=== PATIENT | male | born 1960 | race African-American/Black ===

== ENCOUNTER 2016-12-06 21:48 | Inpatient (IN) | payer MEDICAID ==
[2016-12-06] MEDS ORDERED: Sodium Chloride 0.9% 1,000 ML IV ONE (22:31)
[2016-12-06] MEDS ORDERED: Albuterol/Ipratropium Neb 3 ML AERS HHN ONE ×2 (22:31→22:35)
--- NOTE | 2016-12-06 22:38 | ED Physician Chart ---
Chief Complaint/HPI - Patient Information Date Seen:: 12/06/16 Time Seen:: 22:32 Chief Complaint:: cough History of Present Illness:: 1 wk hx of severe cough. pt recently dxd w copd. hx of smoking 1ppd...quit x 2 weeks. sent in from [facility] by Dr Bonilla. no cardiac hx. no hx of dvt. no leg edema or pain. pt was just released from [facility] on sunday for similar sx(copd exac ). he has not been on any abx. there has been no fever. pt says cough is prod of some yellow sputum although we have seen none expressed here in ed. call placed to in for additional info yields conflicting info that pt is on levaquin since yesterday...pt had denied being on any abx. Allergies:: Allergies Allergy/AdvReac Type Severity Reaction Status Date / Time No Known Allergies Allergy Verified 12/06/16 22:11 Vitals:: Vital Signs - 8 hr 12/06/16 22:00 Temp 98.1 F HR 86 RR 22 BP 134/94 O2 Sat % 95 Historian:: Patient Review of Systems - Review of Systems General/Constitutional: No fever, No chills, No weight loss, No weakness, No diaphoresis, No edema, No loss of appetite Skin: No skin lesions, No rash, No bruising Head: No headache, No light-headedness Eyes: No loss of vision, No pain, No diplopia ENT: No earache, No nasal drainage, No sore throat, No tinnitus Neck: No neck pain, No swelling, No thyromegaly, No stiffness, No mass noted Cardio Vascular: No chest pain, No palpitations, No PND, No orthopnea, No edema Pulmonary: No SOB, Cough, Sputum, No wheezing GI: No nausea, No vomiting, No diarrhea, No pain, No melena, No hematochezia, No constipation, No hematemesis G/U: No dysuria, No frequency, No hematuria Musculoskeletal: No bone or joint pain, No back pain, No muscle pain Endocrine: No polyuria, No polydipsia Psychiatric: No prior psych history, No depression, No anxiety, No suicidal ideation Hematopoietic: No bruising, No lymphadenopathy Allergic/Immuno: No urticaria, No angioedema Neurological: No syncope, No focal symptoms, No weakness, No paresthesia, No headache, No seizure, No dizziness, No confusion, No vertigo Past Medical History - Past Medical History Past Medical History: Asthma/COPD, Other (back pain, spinal disc dz) Social History: Non Smoker (prior 1ppd smoker till 2 wks ago) Psychiatricy History: Bipolar Medication: Reviewed Family Medical History - Family Member Mother History Unknown: Yes Physical Exam - Physical Examination General/Constitutional: Awake, Well-developed, well-nourished, Alert, No distress, GCS 15, Non-toxic appearing, Ambulatory Head: Atraumatic Eyes: Lids, conjuctiva normal, PERRL, EOMI Skin: Nl inspection, No rash, No skin lesions, No ecchymosis, Well hydrated, No lymphadenopathy ENMT: External ears, nose nl, Nasal exam nl, Lips, teeth, gums nl Neck: Nontender, Full ROM w/o pain, No JVD, No nuchal rigidity, No bruit, No mass, No stridor Respiratory: Nl effort/Exclusion, Clear to Auscultation Other Respiratory comments:: pt has mild dry cough. lungs clear. nonpressured speech. nontoxic/alert. Cardio Vascular: RRR, No murmur, gallop, rubs, NL S1 S2 GI: No tenderness/rebounding/guarding, No organomegaly, No hernia, Normal BS's, Nondistended, No mass/bruits, No McBurney tenderness : No CVA tenderness Extremities: No tenderness or effusion, Full ROM, normal strength in all extremities, No edema, Normal digits & nails Neuro/Psych: Alert/oriented, DTR's symmetric, Normal sensory exam, Normal motor strength, Judgement/insight normal, Mood normal, Normal gait, No focal deficits Misc: normal gait, Normal back, No paraspinal tenderness Labs/Radiology/EKG Results - Lab Results Results: Laboratory Tests 12/06/16 12/06/16 12/06/16 22:53 23:23 23:23 WBC 8.4 RBC 4.94 Hgb 13.9 Hct 41.5 MCV 83.9 MCH 28.2 MCHC Differential 33.6 RDW 13.5 Plt Count 210 MPV 8.7 Neutrophils % 77.3 Lymphocytes % 16.5 L Monocytes % 1.9 L Eosinophils % 0.9 Basophils % 3.4 H Sodium 134 L Potassium 4.7 Chloride 103 Carbon Dioxide 29.2 Anion Gap 6.5 L BUN 18 Creatinine 1.0 Est GFR ( Amer) > 60.0 Est GFR (Non-Af Amer) > 60.0 BUN/Creatinine Ratio 18.0 Glucose 110 H Whole Bld Lactic Acid 1.31 Calcium 8.9 Total Bilirubin 0.4 AST 19 ALT 47 Alkaline Phosphatase 58 Total Protein 7.0 Albumin 4.0 L Globulin 3.0 Albumin/Globulin Ratio 1.3 Valproic Acid 12/06/16 23:23 WBC RBC Hgb Hct MCV MCH MCHC Differential RDW Plt Count MPV Neutrophils % Lymphocytes % Monocytes % Eosinophils % Basophils % Sodium Potassium Chloride Carbon Dioxide Anion Gap BUN Creatinine Est GFR ( Amer) Est GFR (Non-Af Amer) BUN/Creatinine Ratio Glucose Whole Bld Lactic Acid Calcium Total Bilirubin AST ALT Alkaline Phosphatase Total Protein Albumin Globulin Albumin/Globulin Ratio Valproic Acid 31.2 L - Radiology Results Results: cxr nad - EKG Interpretations EKG Time:: 10:45 Rhythm: nsr [place]: 45 Rate: 73 Comments:: wnl ED Septic Shock - . Is Septic Shock (SBP<90, OR Lactate>4 mmol\L) present?: No - <6hrs of presentation: Vital Signs: Vital Signs - 8 hr 12/06/16 22:00 Temp 98.1 F HR 86 RR 22 BP 134/94 O2 Sat % 95 Reassessment (Disposition) - Reassessment Reassessment:: case dw Dr Bonilla who has decided to admit pt for observation. he will give rn a abx order. ...etc.. Reassessment Condition:: Improved - Diagnosis Diagnosis:: 1 copd exacerbation 2 bronchitis - Patient Disposition Admitted to:: Med/Surg Condition at Disposition:: Improved
[2016-12-06 23:09] LABS: % BASOPHILS 3.4 % (0.0-2.0); % EOSINOPHILS 0.9 % (0.0-5.0); % LYMPHOCYTES 16.5 % (20.0-50.0); % MONOCYTES 1.9 % (2.0-10.0); % NEUTROPHILS 77.3 % (40.0-80.0); HEMATOCRIT 41.5 % (39.0-49.0); HEMOGLOBIN 13.9 gm/dL (13.2-17.3); MEAN CELL VOLUME 83.9 fl (80-99); MEAN CORPUSCULAR HEMOGLOBIN 28.2 pg (26.0-30.0); MEAN CORPUSCULAR HGB CONC 33.6 pg (28.0-36.0); MEAN PLATELET VOLUME 8.7 fl; NEUTROPHILE ABSOLUTE 6.4 Th/cmm (1.8-8.0); PLATELET COUNT 210 Th/cmm (150-400); RED BLOOD COUNT 4.94 Mil/cmm (4.30-5.70); RED CELL DISTRIBUTION WIDTH 13.5 % (11.5-20.0); WHITE BLOOD COUNT 8.4 Th/cmm (4.8-10.8)
[2016-12-06 23:49] LABS: ALB/GLOB RATIO 1.3 (1.0-1.8); ALKALINE PHOSPHATASE 58 U/L (34-104); ANION GAP 6.5 (7.0-16.0); BILIRUBIN,TOTAL 0.4 mg/dL (0.3-1.0); BUN - UREA NITROGEN 18 mg/dL (7-25); CALCIUM SERUM 8.9 mg/dL (8.6-10.3); CARBON DIOXIDE 29.2 mEq/L (21.0-31.0); CHLORIDE 103 mEq/L (98-107); GLUCOSE 110 mg/dL (70-105); POTASSIUM SERUM 4.7 mEq/L (3.5-5.1); SGOT 19 U/L (13-39); SGPT/ALT 47 U/L (7-52); SODIUM SERUM 134 mEq/L (136-145)
--- NOTE | 2016-12-07 00:21 | Admit Criteria Form ---
Admit Criteria Forms - Admit Criteria Diagnosis: COPD Clinical Indications for Admission to Inpatient Care (Place 'X' for any and all applicable criteria): Admission is indicated for ANY ONE of the following (1)(2)(3): [X]I. Acute exacerbation by high-risk comorbidity (e.g., pneumonia, dysrhythmia, heart failure, pleural effusion, pneumothorax) or severe underlying COPD (e.g., steroid dependent) [ ]II. Inpatient admission required rather than observation care (see Chronic Obstructive Pulmonary Disease: Observation Care) because of ANY ONE of the following: [ ]a) New or pre-existing signs or symptoms of COPD (eg, dyspnea or Tachypnea at rest or with minimal activity) that persist despite outpatient and observation care treatment [ ]b) New-onset hypoxemia (room air SaO2 less than 90%, PO2 less than 60 mm Hg (8.0 kPa)) that persists despite outpatient and observation care treatment [ ]c) Worsening of pre-existing hypoxemia (eg, new or increased requirement for supplemental oxygen to maintain oxygenation at baseline level) that persists despite outpatient and observation care treatment, with oxygen treatment needs performable only in acute inpatient setting [ ]d) Hypercarbia (PCO2 greater than 40 mm Hg (5.3 kPa))-induced respiratory acidosis (pH less than 7.35) that persists despite outpatient and observation care treatment [ ]e) Supplemental oxygen or respiratory treatments for over 24 hours that are performable only in acute inpatient setting [ ]f) Chest tube placement with active evacuation (e.g., suction, drainage) (5) [ ]g) Other condition, treatment or monitoring requiring inpatient admission [ ]III. Planned invasive surgical or diagnostic procedures requiring acute- care hospitalization [ ]IV. Acute respiratory failure (e.g., uncompensated hypercarbia, severe hypoxemia) [ ]V. Severe comorbid condition (e.g., severe steroid myopathy, acute vertebral fracture) that has acutely worsened pulmonary function [ ]. Confusion state, lethargy, obtundation, stupor or coma Extended stay beyond goal length of stay may be needed for (31)(32): [ ]a ) Respiratory Failure. [ ]b) Severe or persisting hypoxemia or hypercarbia [ ]c) Severe or persistent dyspnea [ ]d) Comorbidities (e.g. chronic heart failure, atrial fibrillation with rapid response, pneumonia) [ ]e) Malnutrition The original [facility] content created by [facility] has been revised. The portions of the content which have been revised are identified through the use of italic text or in bold, and [facility] has neither reviewed nor approved the modified material. All other unmodified content is copyright [facility]. Please see references footnoted in the original [facility] edition 2016 Admit Criteria Met?: Yes
[2016-12-07] MEDS ORDERED: guaiFENesin 200 MG/10 ML UDC PO PRN (00:23)
[2016-12-07] MEDS ORDERED: Maalox 30 mL Cup PO PRN (00:23)
[2016-12-07] MEDS: Levofloxacin 500mg/100mL 500 MG/100 ML BAG IV SCH (01:45)
[2016-12-07] MEDS: D5-0.45NS 1,000 ML IV SCH ×2 (02:02→22:54)
[2016-12-07] MEDS: methylPREDNISolone SS 40 mg Vial IVP SCH ×3 (04:39→20:51)
[2016-12-07] MEDS ORDERED: CLOTRIMAZOLE TP SCH (09:00)
[2016-12-07] MEDS: Ammonium Lactate Cream 140 gm Tube TP SCH ×2 (09:29→16:20)
[2016-12-07] MEDS: Potassium Chloride 10 mEq ER Tab PO SCH (09:35)
[2016-12-07] MEDS: Ipratropium Neb 0.5 mg/2.5 mL UD IH SCH ×3 (11:21→19:45)
[2016-12-07] MEDS: Albuterol Nebulizer 2.5mg/3mL IH SCH ×3 (11:21→19:45)
--- NOTE | 2016-12-07 11:36 | Diagnostic Imaging Report ---
Portable chest x-ray History: Cough Allowing for portable technique the heart size is normal. No focal pulmonary parenchymal processes. No hilar or mediastinal abnormalities. Impression: No acute abnormalities.
--- NOTE | 2016-12-07 12:58 | Internal Medicine Prog Note ---
Internal Medicine Subjective - Subjective Service Date: 12/07/16 ([facility] [id number]) Internal Medicine Objective - Results Result Diagrams: 12/06/16 22:53 12/06/16 23:23 Recent Labs: Laboratory Last Values WBC 8.4 Th/cmm (4.8-10.8) 12/06/16 22:53 RBC 4.94 Mil/cmm (4.30-5.70) 12/06/16 22:53 Hgb 13.9 gm/dL (13.2-17.3) 12/06/16 22:53 Hct 41.5 % (39.0-49.0) 12/06/16 22:53 MCV 83.9 fl (80-99) 12/06/16 22:53 MCH 28.2 pg (26.0-30.0) 12/06/16 22:53 MCHC Differential 33.6 pg (28.0-36.0) 12/06/16 22:53 RDW 13.5 % (11.5-20.0) 12/06/16 22:53 Plt Count 210 Th/cmm (150-400) 12/06/16 22:53 MPV 8.7 fl 12/06/16 22:53 Neutrophils % 77.3 % (40.0-80.0) 12/06/16 22:53 Lymphocytes % 16.5 % (20.0-50.0) L 12/06/16 22:53 Monocytes % 1.9 % (2.0-10.0) L 12/06/16 22:53 Eosinophils % 0.9 % (0.0-5.0) 12/06/16 22:53 Basophils % 3.4 % (0.0-2.0) H 12/06/16 22:53 Sodium 134 mEq/L (136-145) L 12/06/16 23:23 Potassium 4.7 mEq/L (3.5-5.1) 12/06/16 23:23 Chloride 103 mEq/L (98-107) 12/06/16 23:23 Carbon Dioxide 29.2 mEq/L (21.0-31.0) 12/06/16 23:23 Anion Gap 6.5 (7.0-16.0) L 12/06/16 23:23 BUN 18 mg/dL (7-25) 12/06/16 23:23 Creatinine 1.0 mg/dL (0.7-1.3) 12/06/16 23:23 Est GFR ( Amer) > 60.0 ml/min (>90) 12/06/16 23:23 Est GFR (Non-Af Amer) > 60.0 ml/min 12/06/16 23:23 BUN/Creatinine Ratio 18.0 12/06/16 23:23 Glucose 110 mg/dL (70-105) H 12/06/16 23:23 Whole Bld Lactic Acid 1.31 mmol/L (0.60-2.00) 12/06/16 23:23 Calcium 8.9 mg/dL (8.6-10.3) 12/06/16 23:23 Total Bilirubin 0.4 mg/dL (0.3-1.0) 12/06/16 23:23 AST 19 U/L (13-39) 12/06/16 23:23 ALT 47 U/L (7-52) 12/06/16 23:23 Alkaline Phosphatase 58 U/L (34-104) 12/06/16 23:23 Troponin I 0.01 ng/mL (0.01-0.05) 12/06/16 22:53 Total Protein 7.0 gm/dL (6.0-8.3) 12/06/16 23:23 Albumin 4.0 gm/dL (4.2-5.5) L 12/06/16 23:23 Globulin 3.0 gm/dL 12/06/16 23:23 Albumin/Globulin Ratio 1.3 (1.0-1.8) 12/06/16 23:23 Valproic Acid 31.2 ug/mL (50.0-100.0) L 12/06/16 23:23 - Physical Exam Vitals and I&O: Vital Signs Temp 98.2 F 12/07/16 08:00 Pulse 86 12/07/16 11:21 Resp 18 12/07/16 11:21 BP 146/90 12/07/16 09:34 Pulse Ox 99 12/07/16 11:21 Intake & Output 12/06/16 12/07/16 12/07/16 18:59 06:59 18:59 Intake Total 240 240 Balance 240 240 Intake: Oral 240 240 Other: # Voids 1 Stool Characteristics Soft Active Medications: Current Medications Acetaminophen (Tylenol) 650 mg PO Q4HR PRN PRN Reason: Pain or Fever >101 Stop: 02/05/17 00:22 Al Hydrox/Mg Hydrox/Simethicone (Maalox) 30 ml PO Q6HR PRN PRN Reason: Constipation Stop: 02/05/17 00:22 Albuterol Sulfate (Albuterol 2.5mg/3ml Neb Ud) 2.5 mg IH QID [facility]ACY Stop: 02/05/17 08:59 Last Admin: 12/07/16 11:21 Dose: 2.5 mg Aripiprazole (Abilify) 30 mg PO DAILY STACY PRN Reason: Protocol Stop: 02/05/17 08:59 Last Admin: 12/07/16 09:30 Dose: 30 mg Clonazepam (Klonopin) 2 mg PO BID [facility]ACY Stop: 02/05/17 08:59 Last Admin: 12/07/16 09:34 Dose: 2 mg Clotrimazole (Lotrimin 1% Cream) 0 appl TP BID [facility] Stop: 02/05/17 08:59 Last Admin: 12/07/16 09:29 Dose: 1 appl Diphenhydramine HCl (Benadryl) 50 mg PO HS PRN PRN Reason: Insomnia Stop: 02/05/17 00:20 Divalproex Sodium (Depakote Er) 1,500 mg PO HS STACY PRN Reason: Protocol Stop: 02/05/17 20:59 Divalproex Sodium (Depakote Er) 500 mg PO QAM STACY PRN Reason: Protocol Stop: 02/05/17 08:59 Last Admin: 12/07/16 09:29 Dose: 500 mg Furosemide (Lasix) 20 mg PO DAILY [facility] Stop: 02/05/17 08:59 Last Admin: 12/07/16 09:34 Dose: 20 mg Guaifenesin (Robitussin) 200 mg PO Q4HR PRN PRN Reason: Cough or Congestion Stop: 02/05/17 00:22 Heparin Sodium (Porcine) (Heparin) 5,000 units SUBQ Q12HR [facility] Stop: 02/05/17 08:59 Last Admin: 12/07/16 09:34 Dose: 5,000 units Dextrose/Sodium Chloride (D5-0.45ns) 1,000 mls @ 50 mls/hr IV .Q20H [facility] Stop: 02/05/17 00:29 Last Admin: 12/07/16 02:02 Dose: 50 mls/hr Levofloxacin (Levaquin Pb) 500 mg in 100 mls @ 100 mls/hr IV Q24HR [facility] Stop: 02/05/17 01:59 Last Admin: 12/07/16 01:45 Dose: 100 mls/hr Ibuprofen (Motrin) 600 mg PO QID PRN PRN Reason: Pain (Mild) Stop: 02/05/17 00:20 Ipratropium [place] (Atrovent Neb 0.5mg/2.5ml) 0.5 mg IH QID [facility] Stop: 02/05/17 08:59 Last Admin: 12/07/16 11:21 Dose: 0.5 mg Lactic Acid (Lac-Hydrin Cream) 1 appl TP BID [facility] Stop: 02/05/17 08:59 Last Admin: 12/07/16 09:29 Dose: 1 appl Methylprednisolone Sodium Succinate (Solu-Medrol) 80 mg IVP Q8HR [facility] Stop: 02/05/17 04:59 Last Admin: 12/07/16 04:39 Dose: 80 mg Olanzapine (Zyprexa) 10 mg PO BID PRN; Protocol PRN Reason: Agitation Stop: 02/05/17 00:20 Ondansetron HCl (Zofran) 4 mg IV Q8H PRN PRN Reason: Nausea / Vomiting Stop: 02/05/17 00:22 Potassium Chloride (Klor-Con) 10 meq PO DAILY [facility] Stop: 02/05/17 08:59 Last Admin: 12/07/16 09:35 Dose: 10 meq Tramadol HCl (Ultram) 50 mg PO Q6HR PRN PRN Reason: Pain (Moderate) Stop: 02/05/17 00:20 Trihexyphenidyl HCl (Artane) 2 mg PO BID [facility] Stop: 02/05/17 08:59 Last Admin: 12/07/16 09:30 Dose: 2 mg Zolpidem Tartrate (Ambien) 10 mg PO HS PRN PRN Reason: Insomnia Stop: 02/05/17 00:22 Internal Medicine Assmt/Plan - Assessment Assessment: copd exacerbation acute bronchitis morbid obesity
--- NOTE | 2016-12-07 15:29 | History & Physical ---
CHIEF COMPLAINT: Shortness of breath. HISTORY OF PRESENT ILLNESS: This is a 56-year-old -[place] male who is a resident of [facility] for 1-week history of severe productive cough associated with thick yellowish to green secretions. The patient states that he stopped smoking 2 weeks ago. He denied any fevers or any recent travel outside of the . The patient also stated that he was recently at [facility] on Sunday, the , for shortness of breath. He was sent home without any antibiotics. Due to the severity of his shortness of breath, the patient was brought here to [facility]. PAST MEDICAL HISTORY: COPD, asthma, hypertension. SOCIAL HISTORY: The patient was a former smoker. The patient states that he quit smoking 2 weeks ago. Denied any alcohol or any illicit drug usage. The patient resides at an adult home. PSYCHIATRIC HISTORY: Bipolar. MEDICATIONS: Please see medication reconciliation sheet. REVIEW OF SYSTEMS: GENERAL: Denies any fevers, any chills. CARDIOVASCULAR: Denies any chest pain. RESPIRATORY: Denies any shortness of breath but complains of productive cough, denies any wheezing. GASTROINTESTINAL: Denies nausea, vomiting, or abdominal pain. GENITOURINARY: Denies any dysuria. All other systems are reviewed by me and are negative. PHYSICAL EXAMINATION: GENERAL: The patient is well developed, well nourished, no acute distress. VITAL SIGNS: Temperature 98.2, heart rate 72, blood pressure 146/90, respirations 18, O2 97%. HEENT: Head; normocephalic, atraumatic. NECK: Supple. No mass. LUNGS: Few rhonchi bilaterally upon auscultation. SKIN: Regular rate and rhythm. No murmurs or gallops. ABDOMEN: Soft, nontender, nondistended. Positive bowel sounds in all 4 quadrants. LABORATORY DATA: WBC 8.4, H and H of 13.9 and 41.5, platelets 210. Sodium 134, potassium 4.7, chloride 103, BUN 18, creatinine 1.0. DIAGNOSTICS: The patient had a chest x-ray done and the impression is, no acute abnormalities. ASSESSMENT: 1. Chronic obstructive pulmonary disease exacerbation. 2. Acute bronchitis. 3. Morbid obesity. 4. History of diabetes. PLAN: The patient will be kept on IV steroids, Solu-Medrol and also IV antibiotics. CBC, BMP will be monitored. Bronchodilators will be given. We will continue to monitor the patient. JOB# [id number]
[2016-12-08] MEDS: Levofloxacin 500mg/100mL 500 MG/100 ML BAG IV SCH (01:28)
[2016-12-08] MEDS ORDERED: methylPREDNISolone SS 40 mg Vial ONE ×2 (03:09)
[2016-12-08] MEDS: methylPREDNISolone SS 40 mg Vial IVP SCH (05:21)
[2016-12-08 05:44] LABS: HEMATOCRIT 40.1 % (39.0-49.0); HEMOGLOBIN 13.6 gm/dL (13.2-17.3); MEAN CELL VOLUME 83.6 fl (80-99); MEAN CORPUSCULAR HEMOGLOBIN 28.4 pg (26.0-30.0); MEAN PLATELET VOLUME 8.6 fl; PLATELET COUNT 203 Th/cmm (150-400); RED CELL DISTRIBUTION WIDTH 13.6 % (11.5-20.0)
[2016-12-08 06:13] LABS: WHITE BLOOD COUNT 26.3 Th/cmm (4.8-10.8)
[2016-12-08 06:30] LABS: ANION GAP 5.9 (7.0-16.0); BUN - UREA NITROGEN 18 mg/dL (7-25); CALCIUM SERUM 8.8 mg/dL (8.6-10.3); CARBON DIOXIDE 25.4 mEq/L (21.0-31.0); CHLORIDE 107 mEq/L (98-107); CREATININE - SERUM 0.9 mg/dL (0.7-1.3); GLUCOSE 140 mg/dL (70-105); MAGNESIUM 2.3 mg/dL (1.9-2.7); POTASSIUM SERUM 4.3 mEq/L (3.5-5.1); SODIUM SERUM 134 mEq/L (136-145)
[2016-12-08] MEDS: Ipratropium Neb 0.5 mg/2.5 mL UD IH SCH (07:38)
[2016-12-08] MEDS: Albuterol Nebulizer 2.5mg/3mL IH SCH (07:39)
[2016-12-08] MEDS: Potassium Chloride 10 mEq ER Tab PO SCH (08:28)
[2016-12-08] MEDS: Ammonium Lactate Cream 140 gm Tube TP SCH ×2 (08:49→16:52)
[2016-12-08 09:37] LABS: BAND NEUTROPHILE 5 % (0-10); NEUTROPHILS 88 % (40-80); PLATELET ESTIMATE ADEQUATE (NORMAL); PLATELET MORPHOLOGY NORMAL (NORMAL); TOTAL CELLS COUNTED 100
[2016-12-08] MEDS ORDERED: Ipratropium Neb 0.5 mg/2.5 mL UD HHN SCH (11:00)
[2016-12-08] MEDS ORDERED: Albuterol Nebulizer 2.5mg/3mL HHN SCH (11:00)
--- NOTE | 2016-12-08 12:21 | Internal Medicine Prog Note ---
Internal Medicine Subjective - Subjective Service Date: 12/08/16 ([id number] DC SUMMARY) Internal Medicine Objective - Results Result Diagrams: 12/08/16 05:25 12/08/16 05:25 Recent Labs: Laboratory Last Values WBC 26.3 Th/cmm (4.8-10.8) H* D 12/08/16 05:25 RBC 4.80 Mil/cmm (4.30-5.70) 12/08/16 05:25 Hgb 13.6 gm/dL (13.2-17.3) 12/08/16 05:25 Hct 40.1 % (39.0-49.0) 12/08/16 05:25 MCV 83.6 fl (80-99) 12/08/16 05:25 MCH 28.4 pg (26.0-30.0) 12/08/16 05:25 MCHC Differential 34.0 pg (28.0-36.0) 12/08/16 05:25 RDW 13.6 % (11.5-20.0) 12/08/16 05:25 Plt Count 203 Th/cmm (150-400) 12/08/16 05:25 MPV 8.6 fl 12/08/16 05:25 Neutrophils % 77.3 % (40.0-80.0) 12/06/16 22:53 Band Neutrophils % 5 % (0-10) 12/08/16 05:25 Lymphocytes % 16.5 % (20.0-50.0) L 12/06/16 22:53 Monocytes % 1.9 % (2.0-10.0) L 12/06/16 22:53 Eosinophils % 0.9 % (0.0-5.0) 12/06/16 22:53 Basophils % 3.4 % (0.0-2.0) H 12/06/16 22:53 Neutrophils (Manual) 88 % (40-80) H 12/08/16 05:25 Lymphocytes 3 % (20-50) L 12/08/16 05:25 Monocytes 4 % (2-10) 12/08/16 05:25 Platelet Estimate ADEQUATE (NORMAL) 12/08/16 05:25 Platelet Morphology NORMAL (NORMAL) 12/08/16 05:25 RBC Morph Micro Appear NORMAL (NORMAL) 12/08/16 05:25 Sodium 134 mEq/L (136-145) L 12/08/16 05:25 Potassium 4.3 mEq/L (3.5-5.1) 12/08/16 05:25 Chloride 107 mEq/L (98-107) 12/08/16 05:25 Carbon Dioxide 25.4 mEq/L (21.0-31.0) 12/08/16 05:25 Anion Gap 5.9 (7.0-16.0) L 12/08/16 05:25 BUN 18 mg/dL (7-25) 12/08/16 05:25 Creatinine 0.9 mg/dL (0.7-1.3) 12/08/16 05:25 Est GFR ( Amer) > 60.0 ml/min (>90) 12/08/16 05:25 Est GFR (Non-Af Amer) > 60.0 ml/min 12/08/16 05:25 BUN/Creatinine Ratio 20.0 12/08/16 05:25 Glucose 140 mg/dL (70-105) H 12/08/16 05:25 Whole Bld Lactic Acid 1.31 mmol/L (0.60-2.00) 12/06/16 23:23 Calcium 8.8 mg/dL (8.6-10.3) 12/08/16 05:25 Magnesium 2.3 mg/dL (1.9-2.7) 12/08/16 05:25 Total Bilirubin 0.4 mg/dL (0.3-1.0) 12/06/16 23:23 AST 19 U/L (13-39) 12/06/16 23:23 ALT 47 U/L (7-52) 12/06/16 23:23 Alkaline Phosphatase 58 U/L (34-104) 12/06/16 23:23 Troponin I 0.01 ng/mL (0.01-0.05) 12/06/16 22:53 B-Natriuretic Peptide 78.1 pg/mL (5.0-100.0) 12/08/16 05:25 Total Protein 7.0 gm/dL (6.0-8.3) 12/06/16 23:23 Albumin 4.0 gm/dL (4.2-5.5) L 12/06/16 23:23 Globulin 3.0 gm/dL 12/06/16 23:23 Albumin/Globulin Ratio 1.3 (1.0-1.8) 12/06/16 23:23 Valproic Acid 31.2 ug/mL (50.0-100.0) L 12/06/16 23:23 - Physical Exam Vitals and I&O: Vital Signs Temp 98 F 12/08/16 04:00 Pulse 80 12/08/16 11:34 Resp 20 12/08/16 11:34 BP 148/80 12/08/16 08:27 Pulse Ox 94 12/08/16 11:34 Intake & Output 12/07/16 12/08/16 12/08/16 18:59 06:59 18:59 Intake Total 840 1850 Output Total 1300 Balance 840 550 Intake: Intake, IV Amount 1100 D5-0.45NS 1,000 ml @ 50 1000 mls/hr IV .Q20H [facility] Rx#: [id number] Levofloxacin 500mg/100mL 100 500 mg In 100 ml @ 100 mls/hr IV Q24HR [facility] Rx#: [id number] Oral 840 750 Output: Urine 1300 Other: # Voids 3 Active Medications: Current Medications Acetaminophen (Tylenol) 650 mg PO Q4HR PRN PRN Reason: Pain or Fever >101 Stop: 02/05/17 00:22 Al Hydrox/Mg Hydrox/Simethicone (Maalox) 30 ml PO Q6HR PRN PRN Reason: Constipation Stop: 02/05/17 00:22 Albuterol Sulfate (Albuterol 2.5mg/3ml Neb Ud) 2.5 mg HHN QIDRT [facility] Stop: 02/06/17 10:59 Last Admin: 12/08/16 11:34 Dose: 2.5 mg Aripiprazole (Abilify) 30 mg PO DAILY [facility] PRN Reason: Protocol Stop: 02/05/17 08:59 Last Admin: 12/08/16 08:48 Dose: 30 mg Clonazepam (Klonopin) 2 mg PO BID [facility] Stop: 02/05/17 08:59 Last Admin: 12/08/16 08:28 Dose: 2 mg Clotrimazole (Lotrimin 1% Cream) 0 appl TP BID [facility] Stop: 02/05/17 08:59 Last Admin: 12/08/16 08:49 Dose: 1 appl Diphenhydramine HCl (Benadryl) 50 mg PO HS PRN PRN Reason: Insomnia Stop: 02/05/17 00:20 Divalproex Sodium (Depakote Er) 1,500 mg PO HS [facility] PRN Reason: Protocol Stop: 02/05/17 20:59 Last Admin: 12/07/16 20:51 Dose: 1,500 mg Divalproex Sodium (Depakote Er) 500 mg PO QAM [facility] PRN Reason: Protocol Stop: 02/05/17 08:59 Last Admin: 12/08/16 08:27 Dose: 500 mg Furosemide (Lasix) 20 mg PO DAILY [facility] Stop: 02/05/17 08:59 Last Admin: 12/08/16 08:27 Dose: 20 mg Guaifenesin (Robitussin) 200 mg PO Q4HR PRN PRN Reason: Cough or Congestion Stop: 02/05/17 00:22 Heparin Sodium (Porcine) (Heparin) 5,000 units SUBQ Q12HR [facility] Stop: 02/05/17 08:59 Last Admin: 12/08/16 08:29 Dose: 5,000 units Dextrose/Sodium Chloride (D5-0.45ns) 1,000 mls @ 50 mls/hr IV .Q20H [facility] Stop: 02/05/17 00:29 Last Admin: 12/07/16 22:54 Dose: 50 mls/hr Levofloxacin (Levaquin Pb) 500 mg in 100 mls @ 100 mls/hr IV Q24HR [facility] Stop: 02/05/17 01:59 Last Infusion: 12/08/16 02:28 Dose: Infused Ibuprofen (Motrin) 600 mg PO QID PRN PRN Reason: Pain (Mild) Stop: 02/05/17 00:20 Ipratropium [place] (Atrovent Neb 0.5mg/2.5ml) 0.5 mg HHN QIDRT [facility] Stop: 02/06/17 10:59 Last Admin: 12/08/16 11:34 Dose: 0.5 mg Lactic Acid (Lac-Hydrin Cream) 1 appl TP BID [facility] Stop: 02/05/17 08:59 Last Admin: 12/08/16 08:49 Dose: 1 appl Methylprednisolone Sodium Succinate (Solu-Medrol) 80 mg IVP Q8HR [facility] Stop: 02/06/17 12:59 Olanzapine (Zyprexa) 10 mg PO BID PRN; Protocol PRN Reason: Agitation Stop: 02/05/17 00:20 Ondansetron HCl (Zofran) 4 mg IV Q8H PRN PRN Reason: Nausea / Vomiting Stop: 02/05/17 00:22 Potassium Chloride (Klor-Con) 10 meq PO DAILY [facility] Stop: 02/05/17 08:59 Last Admin: 12/08/16 08:28 Dose: 10 meq Tramadol HCl (Ultram) 50 mg PO Q6HR PRN PRN Reason: Pain (Moderate) Stop: 02/05/17 00:20 Trihexyphenidyl HCl (Artane) 5 mg PO BID [facility] Stop: 02/06/17 08:59 Last Admin: 12/08/16 08:50 Dose: 5 mg Zolpidem Tartrate (Ambien) 10 mg PO HS PRN PRN Reason: Insomnia Stop: 02/05/17 00:22 Last Admin: 12/08/16 02:46 Dose: 10 mg Internal Medicine Assmt/Plan - Assessment Assessment: copd exacerbation acute bronchitis morbid obesity
--- NOTE | 2016-12-08 19:03 | Consultation ---
The patient was seen, chart reviewed, discussed with staff. HISTORY OF PRESENT ILLNESS: The patient is a 56-year-old male with a history of schizoaffective disorder, stated that he was doing well on Stelazine for many years, has slight dyskinesia, states Abilify and Stelazine work really well for him. He reports some paranoia, some voices, no suicidal thoughts. The patient has been cooperative with staff. The patient is taking his medications. PAST PSYCHIATRIC HISTORY: Multiple psychiatric hospitalizations, chronic history of mental illness. PSYCHOSOCIAL HISTORY: The patient said he resides in a board and care in the [facility]. MENTAL STATUS EXAMINATION: The patient is cooperative. Speech is loud, monotonous. Affect was somewhat dysphoric, slightly guarded, some paranoia, occasional auditory hallucinations, oriented x 3. No suicidal thoughts, no homicidal thoughts. ASSESSMENT: Schizoaffective disorder. Medical as medical history. At time, would recommend continuation of medical supportive measures. We will add Stelazine 5 mg p.o. b.i.d. Continue Artane 5 mg p.o. b.i.d. The patient said that was his prior dose. Continue Abilify and Depakote current dose. Continue Klonopin also 2 mg p.o. b.i.d. Monitor condition closely. We will follow the patient while in the hospital. Thank you for the consultation. JOB# [id number]
--- NOTE | 2016-12-08 21:20 | Discharge Summary ---
Dictated for Dr. Desean Bonilla. FINAL DIAGNOSES: 1. Chronic obstructive pulmonary disease exacerbation. 2. Acute bronchitis. 3. Morbid obesity. 4. History of diabetes. HISTORY OF PRESENT ILLNESS: This is a 56-year-old -[place] male who is a resident of ____ home for a week, with history of severe productive cough associated with thick yellowish to green secretions. The patient states that he stopped smoking 2 weeks ago. He denied he fevers or any recent travel outside of the . The patient also stated that he was recently at [facility] on Sunday for shortness of breath. He was at home without any antibiotics. Due to the severity of his shortness of breath, the patient was brought here to [facility]. PHYSICAL EXAMINATION: GENERAL: The patient is well developed, well nourished, in no acute distress. VITAL SIGNS: Stable. HEENT: Head is normocephalic and atraumatic. NECK: Supple. No mass. LUNGS: Clear bilaterally. CARDIOVASCULAR: Regular rate and rhythm. No murmurs or gallops. ABDOMEN: Soft, nontender, and nondistended. Positive bowel sounds in all 4 quadrants. HOSPITAL COURSE: During the hospital stay, the patient was admitted to medical/surgical unit. The patient was receiving IV Solu-Medrol and also IV antibiotics of Levaquin. Bronchodilator was given. The patient's shortness of breath resolved after bronchodilators, IV antibiotics ____ were given. For this reason, the patient is stable for discharge. The patient will be discharged home with p.o. Levaquin, also prednisone, educated the patient the importance of smoking cessation. CONDITION UPON DISCHARGE: Fair. DISPOSITION: Board and care. JOB# [id number]
== END 2016-12-08 17:00 | disposition short-term general hospital (02) | DRG 140 ==
LOC: ER 21:48 → MSI 12-07 00:10
PROVIDERS: ADMIT Internal Medicine; ATTEND Internal Medicine
DX: J44.1 Chronic obstructive pulmonary disease with (acute) exacerbation (principal); E66.01 Morbid (severe) obesity due to excess calories; J44.0 Chronic obstructive pulmonary disease with (acute) lower respiratory infection; J20.9 Acute bronchitis, unspecified; E11.9 Type 2 diabetes mellitus without complications; F31.9 Bipolar disorder, unspecified; J45.909 Unspecified asthma, uncomplicated; F25.9 Schizoaffective disorder, unspecified; Z87.891 Personal history of nicotine dependence; Z68.31 Body mass index [BMI] 31.0-31.9, adult
CPT/HCPCS: 36415-UA; 71010-TC; 80048-TC; 80053-TC; 80164-TC; 83605; 83735-TC; 83880-TC; 84484-TC; 85007-TC; 85025-TC; 85027-TC; 90779; 93005; 94640; 94760; 96374; J1644; J1956; J2920; J2930; J7030; J7613; Z7610

== ENCOUNTER 2017-03-13 20:30 | Emergency (ER) | payer MEDICAID ==
--- NOTE | 2017-03-13 20:32 | ED Physician Chart ---
Chief Complaint/HPI - Patient Information Date Seen:: 03/13/17 Time Seen:: 20:32 Chief Complaint:: chest pain History of Present Illness:: 56-year-old male history of A. fib, brought in by ambulance with complaint of acute, constant, severe at worst, radiating to the left upper extremity, now improving, chest pain since 1500 today. Patient did not take any medications but the pain is improved on its own. Apparently was on digoxin for A. fib many years ago however stopped taking digoxin about 6-7 months ago because of jain believes. Denies nausea, vomiting, headache, jaw pain, acute vision changes, abdominal pain, diarrhea, dysuria, gross hematuria, gross blood in stool. Allergies:: Allergies Allergy/AdvReac Type Severity Reaction Status Date / Time No Known Allergies Allergy Verified 12/06/16 22:11 Historian:: Patient Review:: Nurse's Note Reviewed Review of Systems - Review of Systems Other: Complete system review otherwise unremarkable except as noted in history of present illness. Past Medical History - Past Medical History Past Medical History: Other (history of atrial fibrillation) Family History: None Social History: Non Smoker, No Alcohol, No Drug Use, Care Facility Surgical History: None Psychiatricy History: None Medication: None Family Medical History - Family Member Mother History Unknown: Yes Ethnicity: Non- Physical Exam - Physical Examination Other:: INITIAL VITAL SIGNS: Reviewed by me GENERAL: Alert and interactive. No acute distress HEAD: Head is normocephalic and atraumatic EYES: EOMI. PERRL. No scleral icterus. No conjunctival injection ENT: Moist mucous membranes. NECK: Supple. No masses. Full range of motion RESPIRATORY: No tachypnea. Clear breath sounds bilaterally. No wheezing, rales, or rhonchi CV: Regular rate and rhythm. No murmurs, rubs, or gallops ABDOMEN: Soft, non-distended, non-tender. No guarding. No rebound. No masses. EXTREMITIES: No deformity. No cyanosis. No edema. SKIN: Warm and dry. No obvious rashes. NEUROLOGIC: Alert and oriented. Face is symmetric. Speech is normal. Moves all extremities equally. Motor and sensory distally intact. Labs/Radiology/EKG Results - Radiology Results Results: Single AP VIEW Portable Chest X-ray was interpreted independently and contemporaneously by Chelle Byrnes MD: No cardiomegaly Normal mediastinum No lung infiltrates No pneumothorax No soft tissue or bony abnormalities - EKG Interpretations Comments:: 12-lead EKG Interpretation by Chelle Byrnes MD: Normal Sinus Rhythm with ventricular rate of 72 beats per minute Normal axis Normal intervals No acute ST or T wave changes. No obvious STEMI ED Septic Shock - . Is Septic Shock (SBP<90, OR Lactate>4 mmol\L) present?: No Reassessment (Disposition) - Reassessment Reassessment:: Patient presents with acute chest pain since 3:00 this afternoon. Unknown family history. HEART score = 1. Labs unremarkable. EKG unremarkable. Apparently has a remote history of atrial fibrillation however patient is currently in sinus rhythm. Did receive aspirin here in the ER. Pain is totally resolved. Patient is requesting to go home. Reviewing all his records labs are essentially unremarkable. Discussed case with primary care physician also agrees patient can be discharged home. He has appointment next week with his primary care physician. Return to ER precautions were given. Patient says he understands and agrees the plan. - Diagnosis Diagnosis:: Acute chest pain, unspecified - Aftercare/Follow up Instructions Aftercare/Follow-Up Instructions:: Counseled pt regarding lab results/diagnosis & need follow up, Refer to Discharge Instructions - Patient Disposition Discharge/Transfer:: Home Time:: 21:42 Condition at Disposition:: Improved
[2017-03-13] MEDS ORDERED: Aspirin 81mg Chewable Tab PO STA (20:33)
[2017-03-13 21:07] LABS: INR 0.97 (0.5-1.4); PROTHROMBIN TIME (TEST) 10.1 SECONDS (9.5-11.5)
[2017-03-13 21:12] LABS: ALB/GLOB RATIO 1.7 (1.0-1.8); ALKALINE PHOSPHATASE 47 U/L (34-104); ANION GAP 6.2 (7.0-16.0); BILIRUBIN,TOTAL 0.4 mg/dL (0.3-1.0); BUN - UREA NITROGEN 20 mg/dL (7-25); CALCIUM SERUM 9.1 mg/dL (8.6-10.3); CARBON DIOXIDE 29.1 mEq/L (21.0-31.0); CHLORIDE 102 mEq/L (98-107); CHOLESTEROL 198 mg/dL (<200); GLUCOSE 102 mg/dL (70-105); POTASSIUM SERUM 4.3 mEq/L (3.5-5.1); SGOT 28 U/L (13-39); SGPT/ALT 42 U/L (7-52); SODIUM SERUM 133 mEq/L (136-145); TRIGLYCERIDES 234 mg/dL (<150); TROP I 0.01 ng/mL (0.01-0.05)
[2017-03-13 21:19] LABS: BNP 12.6 pg/mL (5.0-100.0)
[2017-03-13] MEDS ORDERED: Aspirin 81mg Chewable Tab ONE (21:23)
[2017-03-13 21:38] LABS: % BASOPHILS 2.6 % (0.0-2.0); % EOSINOPHILS 2.4 % (0.0-5.0); % MONOCYTES 4.2 % (2.0-10.0); % NEUTROPHILS 54.8 % (40.0-80.0); MEAN CELL VOLUME 84.8 fl (80-99); MEAN CORPUSCULAR HEMOGLOBIN 28.4 pg (26.0-30.0); MEAN CORPUSCULAR HGB CONC 33.4 pg (28.0-36.0); MEAN PLATELET VOLUME 9.2 fl; PLATELET COUNT 185 Th/cmm (150-400); RED CELL DISTRIBUTION WIDTH 13.1 % (11.5-20.0)
[2017-03-13 21:39] LABS: WHITE BLOOD COUNT 7.3 Th/cmm (4.8-10.8)
[2017-03-13 22:09] LABS: CREATINE KINASE MB 3.1 ng/mL (0.6-6.3)
--- NOTE | 2017-03-14 09:56 | Diagnostic Imaging Report ---
CHEST X-RAY: AP view INDICATION: pain COMPARISON: 12/06/2016 FINDINGS: No focal consolidation or pleural effusions. Heart size is normal. Degenerative changes of the spine are noted. There is evidence of old surgery and possible old trauma of the left distal clavicle. IMPRESSION: No focal airspace consolidation identified.
== END 2017-03-13 23:25 | disposition home or self-care (01) ==
LOC: ER 20:30
DX: R07.89 Other chest pain (principal); I48.91 Unspecified atrial fibrillation
CPT/HCPCS: 36415-UA; 71010-TC; 80053-TC; 80061-TC; 82550-TC; 82553; 83880-TC; 84484-TC; 85025-TC; 85610-TC; 93005; Z7610